=== PATIENT | female | born 1960 | race African-American/Black ===

== ENCOUNTER 2017-05-12 17:29 | Emergency (ER) | payer OTHER ==
[~2017-05-12] VITALS: Ht 167.6 cm; Wt 108.9 kg
[~2017-05-12 17:29] MED LIST: BENTYL 20 MG TA20 M1 PO; BENTYL10 MG PO; BENTYL20 MG PO; CIPRO PO; CITRATE OF MAG296 ML PO; COLACE 100 MG100 MG PO; COMPAZINE10 M2 PO; COMPAZINE25 M1 RC; CYCLOBENZAPRINE10 MG PO; CYMBALTA PO; CYMBALTA60 MG PO; FLEXERIL; HYDROCHLOROTHIA25 M2 PO; HYDROCODON-ACE1 EACH PO; HYDROCODONE-AP1 EAC6 PO; HYDROXYCHLOROQ200 M1 PO; IMURAN 50MG TAB50 M1 PO; LAMISIL250 MG; LISINOPRIL20 MG PO; LOPRESSOR25 PO; LYRICA300 MG PO; METHOTREXATE; MIRALAX17 GM PO; MOBIC15 MG PO; MOTION RELIEF25 MG PO; NEXIUM40 MG PO; NORCO 5-325 TA1 EACH PO; ONDANSETRON HCL4 M2 PO; ONDANSETRON ODT4 MG PO; PERCOCET 5-3251 EACH PO; PHENERGAN 25 MG25 M1 PO; POTASSIUM20 OR; PREDNISONE 5 MG5 M1 PO; PREDNISONE 5 MG5 MG PO; PRILOSEC40 MG PO; PROTONIX40 MG PO; VITAMIN D 5050000 I1; VITAMIN D 5050000 I1 PO; VITAMIN D1000 UNI1 PO; ZANAFLEX2 MG PO; ZOFRAN ODT4 MG PO; ZOFRAN4 MG PO
[2017-05-12] MEDS ORDERED: BENLYSTA120 MG IV (17:38)
[2017-05-12] MEDS ORDERED: MOBIC15 MG PO (17:38)
[2017-05-12] MEDS ORDERED: HYDROCODONE-AP1 EAC6 PO (20:24)
[2017-05-12 20:51] VITALS: BP 144/93
== END 2017-05-12 20:51 | disposition home or self-care (01) ==
LOC: M.ERS 17:29
DX: R51 Headache (principal); M54.2 Cervicalgia; R10.2 Pelvic and perineal pain; M54.5 Low back pain; M32.9 Systemic lupus erythematosus, unspecified; M79.7 Fibromyalgia; M19.90 Unspecified osteoarthritis, unspecified site; I10 Essential (primary) hypertension; K21.9 Gastro-esophageal reflux disease without esophagitis; Z90.49 Acquired absence of other specified parts of digestive tract; Z90.710 Acquired absence of both cervix and uterus

== ENCOUNTER 2017-12-24 07:02 | Emergency (ER) | payer OTHER ==
[~2017-12-24] VITALS: Ht 162.6 cm; Wt 109.3 kg
[~2017-12-24 07:02] MED LIST changes: +BENLYSTA120 MG IV
[2017-12-24] MEDS ORDERED: XYZAL5 MG PO (07:18)
[2017-12-24] MEDS ORDERED: NORCO 5-325 TA1 EACH PO (07:52)
[2017-12-24] MEDS ORDERED: FLEXERIL PO (07:52)
[2017-12-24 08:30] VITALS: BP 138/99
== END 2017-12-24 08:31 | disposition home or self-care (01) ==
LOC: M.ERS 07:02
DX: S39.012A Strain of muscle, fascia and tendon of lower back, initial encounter (principal); I10 Essential (primary) hypertension; M32.9 Systemic lupus erythematosus, unspecified; M79.7 Fibromyalgia; M17.0 Bilateral primary osteoarthritis of knee; K21.9 Gastro-esophageal reflux disease without esophagitis; Z90.49 Acquired absence of other specified parts of digestive tract; Z90.710 Acquired absence of both cervix and uterus; X58.XXXA Exposure to other specified factors, initial encounter; Y93.89 Activity, other specified; Y92.89 Other specified places as the place of occurrence of the external cause; Y99.8 Other external cause status

== ENCOUNTER 2018-02-04 18:44 | Emergency (ER) | payer OTHER ==
[~2018-02-04] VITALS: Ht 167.6 cm; Wt 102.1 kg
[~2018-02-04 18:44] MED LIST changes: +FLEXERIL PO; +XYZAL5 MG PO
[2018-02-04] MEDS ORDERED: BENLYSTA200 MG/1 M SUBQ (18:55)
[2018-02-04] MEDS ORDERED: NORCO 5-325 TA1 EACH PO (19:36)
[2018-02-04] MEDS ORDERED: IBUPROFEN 800800 M1 PO (19:36)
[2018-02-04 20:19] VITALS: BP 147/85
== END 2018-02-04 20:20 | disposition home or self-care (01) ==
LOC: M.ERS 18:44
DX: S52.592A Other fractures of lower end of left radius, initial encounter for closed fracture (principal); S52.612A Displaced fracture of left ulna styloid process, initial encounter for closed fracture; M25.561 Pain in right knee; M79.7 Fibromyalgia; M32.9 Systemic lupus erythematosus, unspecified; I10 Essential (primary) hypertension; K21.9 Gastro-esophageal reflux disease without esophagitis; M13.862 Other specified arthritis, left knee; M13.861 Other specified arthritis, right knee; Z90.710 Acquired absence of both cervix and uterus; Z90.49 Acquired absence of other specified parts of digestive tract; W01.0XXA Fall on same level from slipping, tripping and stumbling without subsequent striking against object, initial encounter; Y93.89 Activity, other specified; Y92.89 Other specified places as the place of occurrence of the external cause; Y99.8 Other external cause status

== ENCOUNTER 2018-02-06 17:50 | Emergency (ER) | payer OTHER ==
[~2018-02-06] VITALS: Ht 167.6 cm; Wt 104.3 kg
[~2018-02-06 17:50] MED LIST changes: +BENLYSTA200 MG/1 M SUBQ; +IBUPROFEN 800800 M1 PO
[2018-02-06 18:15] LABS: URINE BILIRUBIN NEGATIVE (Negative); URINE BLOOD TRACE (Negative); URINE CLARITY CLEAR; URINE COLOR YELLOW; URINE GLUCOSE-RANDOM NEGATIVE (Negative); URINE KETONES NEGATIVE (Negative); URINE LEUKOCYTES-REFLEX NEGATIVE (Negative); URINE NITRITE-REFLEX NEGATIVE (Negative); URINE PROTEIN NEGATIVE (Negative); URINE SPECIFIC GRAVITY >= 1.030 (1.005-1.030); URINE UROBILINOGEN 0.2 E.U./dl (0.2-1.0)
[2018-02-06 18:19] LABS: ABSOLUTE EOSINOPHILS 0.1 thou/uL (0.0-0.7); ABSOLUTE LYMPHOCYTES 1.3 thou/uL (0.8-5.3); ABSOLUTE MONOCYTES 0.5 thou/uL (0.0-1.2); ABSOLUTE NEUTROPHILS 4.5 thou/uL (1.6-8.1); BASOPHILS 0.6 %; EOSINOPHILS 0.9 %; HEMATOCRIT 40.2 % (37.0-47.0); HEMOGLOBIN 12.6 gm/dL (12.0-15.0); LYMPHOCYTES 20.8 %; MCH 24.9 pg (26.0-34.0); MCHC 31.4 g/dL (28.0-37.0); MCV 79.3 fL (80.0-100.0); MONOCYTES 7.6 %; MPV 9.3 fl. (7.2-11.1); NUCLEATED RBCS 0 /100WBC; PLATELET COUNT* 221 thou/uL (150-400); POLYS 70.1 %; RBC 5.07 mil/uL (4.20-5.00); WBC 6.4 thou/uL (4.0-11.0)
[2018-02-06 18:26] LABS: CREATININE 1.1 mg/dL (0.6-1.3); POTASSIUM 3.3 mmol/L (3.5-5.1)
[2018-02-06 18:30] LABS: ALBUMIN 3.1 g/dL (3.4-5.0); TOTAL BILIRUBIN 0.5 mg/dL (<0.1-1.0); TOTAL PROTEIN 7.2 g/dL (6.4-8.2)
[2018-02-06] MEDS ORDERED: PHENERGAN 25 MG25 MG PO (19:12)
[2018-02-06] MEDS ORDERED: ULTRAM 50MG TAB50 MG PO (19:12)
[2018-02-06 19:40] VITALS: BP 165/99
== END 2018-02-06 19:43 | disposition home or self-care (01) ==
LOC: M.ERS 17:50
PROVIDERS: Nurse Practitioner
DX: R11.2 Nausea with vomiting, unspecified (principal); T39.1X5A Adverse effect of 4-Aminophenol derivatives, initial encounter; M79.7 Fibromyalgia; M17.0 Bilateral primary osteoarthritis of knee; K21.9 Gastro-esophageal reflux disease without esophagitis; M32.9 Systemic lupus erythematosus, unspecified; Z90.721 Acquired absence of ovaries, unilateral; Z90.710 Acquired absence of both cervix and uterus; Z90.49 Acquired absence of other specified parts of digestive tract; Y92.89 Other specified places as the place of occurrence of the external cause

== ENCOUNTER 2018-10-21 20:44 | Emergency (ER) | payer OTHER ==
[~2018-10-21] VITALS: Ht 167.6 cm; Wt 103.0 kg
[~2018-10-21 20:44] MED LIST changes: +PHENERGAN 25 MG25 MG PO; +ULTRAM 50MG TAB50 MG PO
[2018-10-21 21:30] LABS: URINE BILIRUBIN NEGATIVE (Negative); URINE BLOOD TRACE (Negative); URINE CLARITY CLEAR; URINE COLOR YELLOW; URINE GLUCOSE-RANDOM NEGATIVE (Negative); URINE KETONES NEGATIVE (Negative); URINE LEUKOCYTES-REFLEX NEGATIVE (Negative); URINE NITRITE-REFLEX NEGATIVE (Negative); URINE PROTEIN NEGATIVE (Negative); URINE SPECIFIC GRAVITY >= 1.030 (1.005-1.030); URINE UROBILINOGEN 0.2 E.U./dl (0.2-1.0)
[2018-10-21 21:45] LABS: ABSOLUTE BASOPHILS 0.1 thou/uL (0.0-0.2); ABSOLUTE EOSINOPHILS 0.1 thou/uL (0.0-0.7); ABSOLUTE LYMPHOCYTES 1.3 thou/uL (0.8-5.3); ABSOLUTE MONOCYTES 0.4 thou/uL (0.0-1.2); ABSOLUTE NEUTROPHILS 6.9 thou/uL (1.6-8.1); BASOPHILS 0.8 %; EOSINOPHILS 0.9 %; HEMATOCRIT 41.3 % (37.0-47.0); HEMOGLOBIN 13.2 gm/dL (12.0-15.0); LYMPHOCYTES 14.4 %; MCH 25.1 pg (26.0-34.0); MCV 78.5 fL (80.0-100.0); MONOCYTES 5.1 %; MPV 9.9 fl. (7.2-11.1); NUCLEATED RBCS 0 /100WBC; PLATELET COUNT* 212 thou/uL (150-400); POLYS 78.8 %; RBC 5.26 mil/uL (4.20-5.00); RDW-CV 14.7 % (10.5-14.5); WBC 8.7 thou/uL (4.0-11.0)
[2018-10-21 21:56] LABS: CALCIUM 9.4 mg/dL (8.5-10.1)
[2018-10-21 22:03] LABS: CREATININE 1.2 mg/dL (0.6-1.3)
[2018-10-21 22:08] LABS: ALBUMIN 3.3 g/dL (3.4-5.0); TOTAL BILIRUBIN 0.4 mg/dL (<0.1-1.0); TOTAL PROTEIN 7.6 g/dL (6.4-8.2)
[2018-10-21] MEDS ORDERED: BENTYL 20 MG TA20 M1 PO (22:23)
[2018-10-21] MEDS ORDERED: ZOFRAN4 MG PO (22:23)
[2018-10-21 22:59] VITALS: BP 146/82
== END 2018-10-21 23:00 | disposition home or self-care (01) ==
LOC: M.ERS 20:44
PROVIDERS: Nurse Practitioner Family
DX: R10.9 Unspecified abdominal pain (principal); R11.2 Nausea with vomiting, unspecified; M79.7 Fibromyalgia; I10 Essential (primary) hypertension; M17.0 Bilateral primary osteoarthritis of knee; K21.9 Gastro-esophageal reflux disease without esophagitis; Z90.49 Acquired absence of other specified parts of digestive tract; Z90.710 Acquired absence of both cervix and uterus

== ENCOUNTER 2019-02-08 12:25 | Emergency (ER) | payer OTHER ==
[~2019-02-08] VITALS: Ht 170.2 cm; Wt 104.3 kg
[2019-02-08] MEDS ORDERED: NORCO 5-325 TA1 EAC1 PO (13:56)
[2019-02-08 14:20] VITALS: BP 183/106
== END 2019-02-08 14:21 | disposition home or self-care (01) ==
LOC: M.ERS 12:25
DX: S82.091A Other fracture of right patella, initial encounter for closed fracture (principal); I10 Essential (primary) hypertension; K21.9 Gastro-esophageal reflux disease without esophagitis; M79.7 Fibromyalgia; Z90.49 Acquired absence of other specified parts of digestive tract; Z90.710 Acquired absence of both cervix and uterus; W01.0XXA Fall on same level from slipping, tripping and stumbling without subsequent striking against object, initial encounter; Y92.89 Other specified places as the place of occurrence of the external cause; Y93.89 Activity, other specified; Y99.8 Other external cause status

== ENCOUNTER 2019-04-20 14:41 | Emergency (ER) | payer MEDICARE ==
[~2019-04-20] VITALS: Ht 167.6 cm; Wt 101.2 kg
[~2019-04-20 14:41] MED LIST changes: +NORCO 5-325 TA1 EAC1 PO
[2019-04-20] MEDS ORDERED: MEDROLDOSEPACK PO (15:36)
[2019-04-20 16:01] VITALS: BP 174/102
== END 2019-04-20 16:02 | disposition home or self-care (01) ==
LOC: M.ERS 14:41
DX: S80.01XA Contusion of right knee, initial encounter (principal); M25.461 Effusion, right knee; M32.9 Systemic lupus erythematosus, unspecified; M79.7 Fibromyalgia; M13.862 Other specified arthritis, left knee; M13.861 Other specified arthritis, right knee; K21.9 Gastro-esophageal reflux disease without esophagitis; I10 Essential (primary) hypertension; Z90.49 Acquired absence of other specified parts of digestive tract; Z90.710 Acquired absence of both cervix and uterus; W01.0XXA Fall on same level from slipping, tripping and stumbling without subsequent striking against object, initial encounter; Y93.89 Activity, other specified; Y92.89 Other specified places as the place of occurrence of the external cause; Y99.8 Other external cause status

== ENCOUNTER 2019-09-11 08:48 | Emergency (ER) | payer MEDICARE ==
[~2019-09-11] VITALS: Ht 167.6 cm; Wt 99.8 kg
[~2019-09-11 08:48] MED LIST changes: +MEDROLDOSEPACK PO
[2019-09-11] MEDS ORDERED: TRAMADOL 50 MG50 MG PO (08:54)
[2019-09-11] MEDS ORDERED: ELIQUIS2.5 MG PO (08:54)
[2019-09-11 09:38] VITALS: BP 137/96
== END 2019-09-11 09:39 | disposition home or self-care (01) ==
LOC: M.ERS 08:48
DX: K13.29 Other disturbances of oral epithelium, including tongue (principal); M79.7 Fibromyalgia; I10 Essential (primary) hypertension; K21.9 Gastro-esophageal reflux disease without esophagitis; Z90.710 Acquired absence of both cervix and uterus

== ENCOUNTER 2019-09-20 10:30 | Emergency (ER) | payer MEDICARE ==
[~2019-09-20] VITALS: Ht 167.6 cm; Wt 101.2 kg
[~2019-09-20 10:30] MED LIST changes: +ELIQUIS2.5 MG PO; +TRAMADOL 50 MG50 MG PO
[2019-09-20 11:08] LABS: ABSOLUTE EOSINOPHILS 0.5 thou/uL (0.0-0.7); ABSOLUTE LYMPHOCYTES 1.3 thou/uL (0.8-5.3); ABSOLUTE MONOCYTES 0.4 thou/uL (0.0-1.2); ABSOLUTE NEUTROPHILS 3.1 thou/uL (1.6-8.1); BASOPHILS 0.7 %; EOSINOPHILS 8.8 %; HEMATOCRIT 36.3 % (37.0-47.0); HEMOGLOBIN 11.9 gm/dL (12.0-15.0); LYMPHOCYTES 24.8 %; MCH 26.2 pg (26.0-34.0); MCHC 32.8 g/dL (28.0-37.0); MCV 79.8 fL (80.0-100.0); MONOCYTES 8.2 %; NUCLEATED RBCS 0 /100WBC; PLATELET COUNT* 245 thou/uL (150-400); POLYS 57.5 %; RBC 4.55 mil/uL (4.20-5.00); RDW-CV 14.5 % (10.5-14.5); WBC 5.4 thou/uL (4.0-11.0)
[2019-09-20 11:19] LABS: CALCIUM 8.1 mg/dL (8.5-10.1); CREATININE 1.1 mg/dL (0.6-1.3); POTASSIUM 3.3 mmol/L (3.5-5.1)
[2019-09-20 11:24] LABS: TOTAL BILIRUBIN 0.5 mg/dL (<0.1-1.0); TOTAL PROTEIN 6.6 g/dL (6.4-8.2)
[2019-09-20 12:40] LABS: URINE BILIRUBIN NEGATIVE (Negative); URINE BLOOD NEGATIVE (Negative); URINE CLARITY CLEAR; URINE COLOR YELLOW; URINE GLUCOSE-RANDOM NEGATIVE (Negative); URINE KETONES NEGATIVE (Negative); URINE LEUKOCYTES-REFLEX NEGATIVE (Negative); URINE NITRITE-REFLEX NEGATIVE (Negative); URINE PROTEIN NEGATIVE (Negative); URINE SPECIFIC GRAVITY <= 1.005 (1.005-1.030); URINE UROBILINOGEN 0.2 E.U./dl (0.2-1.0)
[2019-09-20 13:25] VITALS: BP 152/95
--- NOTE | 2019-09-20 15:27 | EKG ---
[place] [address] ELECTROCARDIOGRAM REPORT Name: TALIB ORANTES Room: [facility]#: [id number] Admission: 09/20/19 Attend Phys: Discharge: 09/20/19 Date of : 64 Date of Service: 09/20/19 1122 Report #: [id number] THIS REPORT FOR: //name// [facility] ED Test Date: 2019-09-20 Test Time: 11:22:54 Pat Name: TALIB ORANTES Department: Room: Gender: F Access Director: PAUL : 1960 Requested By: Jayden Gonzalez Order Number: [id number] MD: Bennie Salinas Measurements Intervals [place] Rate: 89 P: 43 [place]: 138 QRS: 8 QRSD: 81 T: 6 QT: 380 QTc: 463 Interpretive Statements Sinus rhythm Left ventricular hypertrophy Compared to ECG 07/23/2013 18:37:01 Left ventricular hypertrophy now present Electronically Signed On 09-20-2019 15:26:15 CDT by Bennie Salinas [email or web address] <ELECTRONICALLY SIGNED> By: Bennie Salinas MD, FAC 09/20/19 1526 1122 1122 Bennie Salinas MD, [facility] /EPI
== END 2019-09-20 13:25 | disposition home or self-care (01) ==
LOC: M.ERS 10:30
PROVIDERS: Family Medicine
DX: K59.00 Constipation, unspecified (principal); R10.31 Right lower quadrant pain; R60.0 Localized edema; I10 Essential (primary) hypertension; M79.7 Fibromyalgia; K21.9 Gastro-esophageal reflux disease without esophagitis; Z90.710 Acquired absence of both cervix and uterus; Z90.49 Acquired absence of other specified parts of digestive tract; Z79.899 Other long term (current) drug therapy

== ENCOUNTER 2019-11-15 10:14 | Emergency (ER) | payer MEDICARE ==
[~2019-11-15] VITALS: Ht 167.6 cm; Wt 104.3 kg
[2019-11-15] MEDS ORDERED: PLAQUENIL200 MG PO (10:27)
[2019-11-15] MEDS ORDERED: PREDNISONE 5 MG5 M1 PO (10:28)
[2019-11-15] MEDS ORDERED: BENADRYL25 MG PO (10:28)
[2019-11-15] MEDS ORDERED: NABUMETONE 750750 M1 PO (11:04)
[2019-11-15] MEDS ORDERED: TRAMADOL 50 MG50 MG PO (11:04)
[2019-11-15 11:19] VITALS: BP 155/98
== END 2019-11-15 11:20 | disposition home or self-care (01) ==
LOC: M.ERS 10:14
DX: M25.461 Effusion, right knee (principal); M79.7 Fibromyalgia; I10 Essential (primary) hypertension; K21.9 Gastro-esophageal reflux disease without esophagitis; M17.0 Bilateral primary osteoarthritis of knee; M32.9 Systemic lupus erythematosus, unspecified; Z90.49 Acquired absence of other specified parts of digestive tract; Z90.710 Acquired absence of both cervix and uterus

== ENCOUNTER 2020-02-29 02:30 | Emergency (ER) | payer MEDICARE ==
[~2020-02-29] VITALS: Ht 167.6 cm; Wt 104.3 kg
[~2020-02-29 02:30] MED LIST changes: +BENADRYL25 MG PO; +NABUMETONE 750750 M1 PO; +PLAQUENIL200 MG PO
[2020-02-29 03:09] LABS: ABSOLUTE EOSINOPHILS 0.2 thou/uL (0.0-0.7); ABSOLUTE LYMPHOCYTES 1.7 thou/uL (0.8-5.3); ABSOLUTE MONOCYTES 0.5 thou/uL (0.0-1.2); ABSOLUTE NEUTROPHILS 2.6 thou/uL (1.6-8.1); BASOPHILS 0.7 %; EOSINOPHILS 3.8 %; HEMATOCRIT 38.5 % (37.0-47.0); HEMOGLOBIN 12.3 gm/dL (12.0-15.0); LYMPHOCYTES 33.8 %; MCH 24.9 pg (26.0-34.0); MCHC 31.9 g/dL (28.0-37.0); MCV 78.1 fL (80.0-100.0); MONOCYTES 10.2 %; NUCLEATED RBCS 0 /100WBC; PLATELET COUNT* 223 thou/uL (150-400); POLYS 51.5 %; RBC 4.93 mil/uL (4.20-5.00); RDW-CV 14.7 % (10.5-14.5); WBC 5.1 thou/uL (4.0-11.0)
[2020-02-29 03:27] LABS: CALCIUM 9.1 mg/dL (8.5-10.1); POTASSIUM 3.4 mmol/L (3.5-5.1)
[2020-02-29 03:32] LABS: ALBUMIN 3.4 g/dL (3.4-5.0); TOTAL BILIRUBIN 0.6 mg/dL (<0.1-1.0); TOTAL PROTEIN 7.1 g/dL (6.4-8.2)
[2020-02-29] MEDS ORDERED: PREDNISONE50 MG PO (05:47)
[2020-02-29 06:03] VITALS: BP 170/80
== END 2020-02-29 06:04 | disposition home or self-care (01) ==
LOC: M.ERS 02:30
PROVIDERS: Emergency Medicine
DX: T78.3XXA Angioneurotic edema, initial encounter (principal); M79.7 Fibromyalgia; I10 Essential (primary) hypertension; K21.9 Gastro-esophageal reflux disease without esophagitis; M17.0 Bilateral primary osteoarthritis of knee; Z90.711 Acquired absence of uterus with remaining cervical stump; Z90.49 Acquired absence of other specified parts of digestive tract; Z96.612 Presence of left artificial shoulder joint; Z79.899 Other long term (current) drug therapy

== ENCOUNTER 2020-03-14 22:16 | Emergency (ER) | payer MEDICARE ==
[~2020-03-14] VITALS: Ht 167.6 cm; Wt 58.1 kg
[~2020-03-14 22:16] MED LIST changes: +PREDNISONE50 MG PO
[2020-03-14 23:21] LABS: ABSOLUTE BASOPHILS 0.1 thou/uL (0.0-0.2); ABSOLUTE LYMPHOCYTES 1.5 thou/uL (0.8-5.3); ABSOLUTE MONOCYTES 0.6 thou/uL (0.0-1.2); ABSOLUTE NEUTROPHILS 7.4 thou/uL (1.6-8.1); BASOPHILS 0.8 %; EOSINOPHILS 0.2 %; LYMPHOCYTES 15.8 %; MCH 24.7 pg (26.0-34.0); MCHC 31.6 g/dL (28.0-37.0); MONOCYTES 6.1 %; MPV 9.4 fl. (7.2-11.1); NUCLEATED RBCS 0 /100WBC; PLATELET COUNT* 233 thou/uL (150-400); POLYS 77.1 %; RBC 5.26 mil/uL (4.20-5.00); RDW-CV 14.5 % (10.5-14.5); WBC 9.6 thou/uL (4.0-11.0)
[2020-03-14 23:38] LABS: URINE BILIRUBIN NEGATIVE (Negative); URINE BLOOD NEGATIVE (Negative); URINE CLARITY CLEAR; URINE COLOR YELLOW; URINE GLUCOSE-RANDOM NEGATIVE (Negative); URINE KETONES NEGATIVE (Negative); URINE LEUKOCYTES-REFLEX NEGATIVE (Negative); URINE NITRITE-REFLEX NEGATIVE (Negative); URINE PROTEIN TRACE (Negative); URINE SPECIFIC GRAVITY >= 1.030 (1.005-1.030); URINE UROBILINOGEN 0.2 E.U./dl (0.2-1.0)
[2020-03-14 23:39] LABS: CALCIUM 8.8 mg/dL (8.5-10.1); CREATININE 1.1 mg/dL (0.6-1.3); POTASSIUM 4.1 mmol/L (3.5-5.1)
[2020-03-14 23:43] LABS: ALBUMIN 3.5 g/dL (3.4-5.0); TOTAL BILIRUBIN 0.8 mg/dL (<0.1-1.0); TOTAL PROTEIN 7.7 g/dL (6.4-8.2)
[2020-03-15] MEDS ORDERED: ZOFRAN ODT4 MG PO (00:17)
[2020-03-15 00:33] VITALS: BP 156/91
--- NOTE | 2020-03-15 10:16 | EKG ---
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[place] : 1960 Requested By: Irene Prince Order Number: [id number] MD: Bennie Salinas Measurements Intervals [place] Rate: 80 P: 52 [place]: 145 QRS: 10 QRSD: 77 T: 32 QT: 366 QTc: 423 Interpretive Statements Sinus rhythm Left ventricular hypertrophy Compared to ECG 09/20/2019 11:22:54 No significant changes Electronically Signed On 03-15-2020 10:16:09 LUMBER SALES SUPERVISOR by Bennie Salinas [email or web address] <ELECTRONICALLY SIGNED> By: Bennie Salinas MD, FACC 03/15/20 1016 2315 2315 Bennie Salinas MD, [facility] /EPI
== END 2020-03-15 00:33 | disposition home or self-care (01) ==
LOC: M.ERS 22:16
PROVIDERS: Personal Emergency Response Attendant
DX: R11.2 Nausea with vomiting, unspecified (principal); Z20.828 Contact with and (suspected) exposure to other viral communicable diseases; M32.9 Systemic lupus erythematosus, unspecified; M79.7 Fibromyalgia; I10 Essential (primary) hypertension; K21.9 Gastro-esophageal reflux disease without esophagitis; Z90.49 Acquired absence of other specified parts of digestive tract; Z90.710 Acquired absence of both cervix and uterus; Z79.899 Other long term (current) drug therapy

== ENCOUNTER 2020-04-23 14:50 | Emergency (ER) | payer OTHER ==
[~2020-04-23] VITALS: Ht 167.6 cm; Wt 100.7 kg
[2020-04-23 15:39] VITALS: BP 157/98
== END 2020-04-23 15:39 | disposition home or self-care (01) ==
LOC: M.ERS 14:50
DX: U07.1 COVID-19 (principal); M79.10 Myalgia, unspecified site; I10 Essential (primary) hypertension; K21.9 Gastro-esophageal reflux disease without esophagitis; Z90.49 Acquired absence of other specified parts of digestive tract; Z90.710 Acquired absence of both cervix and uterus; Z79.899 Other long term (current) drug therapy

== ENCOUNTER 2020-05-14 20:22 | Emergency (ER) | payer OTHER ==
[~2020-05-14] VITALS: Ht 167.6 cm; Wt 99.8 kg
[2020-05-14 21:10] LABS: ABSOLUTE BASOPHILS 0.1 thou/uL (0.0-0.2); ABSOLUTE EOSINOPHILS 0.1 thou/uL (0.0-0.7); ABSOLUTE LYMPHOCYTES 1.3 thou/uL (0.8-5.3); ABSOLUTE MONOCYTES 0.5 thou/uL (0.0-1.2); ABSOLUTE NEUTROPHILS 4.1 thou/uL (1.6-8.1); EOSINOPHILS 1.1 %; HEMATOCRIT 37.3 % (37.0-47.0); HEMOGLOBIN 11.8 gm/dL (12.0-15.0); LYMPHOCYTES 22.4 %; MCH 24.9 pg (26.0-34.0); MCHC 31.7 g/dL (28.0-37.0); MCV 78.4 fL (80.0-100.0); MONOCYTES 7.9 %; MPV 9.6 fl. (7.2-11.1); NUCLEATED RBCS 0 /100WBC; PLATELET COUNT* 208 thou/uL (150-400); POLYS 67.6 %; RBC 4.76 mil/uL (4.20-5.00)
[2020-05-14 21:15] LABS: CALCIUM 8.9 mg/dL (8.5-10.1); CREATININE 0.9 mg/dL (0.6-1.3); POTASSIUM 3.6 mmol/L (3.5-5.1)
[2020-05-14 21:20] LABS: ALBUMIN 3.3 g/dL (3.4-5.0); TOTAL BILIRUBIN 0.5 mg/dL (<0.1-1.0); TOTAL PROTEIN 7.3 g/dL (6.4-8.2)
[2020-05-14 22:29] LABS: URINE BILIRUBIN NEGATIVE (Negative); URINE BLOOD NEGATIVE (Negative); URINE CLARITY CLEAR; URINE COLOR YELLOW; URINE GLUCOSE-RANDOM NEGATIVE (Negative); URINE KETONES NEGATIVE (Negative); URINE LEUKOCYTES-REFLEX NEGATIVE (Negative); URINE NITRITE-REFLEX NEGATIVE (Negative); URINE PROTEIN NEGATIVE (Negative); URINE SPECIFIC GRAVITY 1.025 (1.005-1.030); URINE UROBILINOGEN 0.2 E.U./dl (0.2-1.0)
[2020-05-14] MEDS ORDERED: ZOFRAN ODT4 MG PO (22:53)
[2020-05-14] MEDS ORDERED: PREDNISONE 10 M10 MG PO (22:54)
[2020-05-14 23:05] VITALS: BP 186/104
[2020-05-15] MEDS ORDERED: PHENERGAN 25 MG25 M1 PO (20:27)
== END 2020-05-14 23:05 | disposition home or self-care (01) ==
LOC: M.ERS 20:22
PROVIDERS: Personal Emergency Response Attendant
DX: R11.0 Nausea (principal); R10.84 Generalized abdominal pain; Z20.822 Contact with and (suspected) exposure to COVID-19; I10 Essential (primary) hypertension; K21.9 Gastro-esophageal reflux disease without esophagitis; M79.7 Fibromyalgia; M32.9 Systemic lupus erythematosus, unspecified; M17.4 Other bilateral secondary osteoarthritis of knee; Z96.612 Presence of left artificial shoulder joint; Z90.710 Acquired absence of both cervix and uterus; Z90.49 Acquired absence of other specified parts of digestive tract

== ENCOUNTER 2020-05-15 19:27 | Emergency (ER) | payer OTHER ==
[~2020-05-15] VITALS: Ht 167.6 cm; Wt 99.8 kg
[~2020-05-15 19:27] MED LIST changes: +PREDNISONE 10 M10 MG PO
[2020-05-15] MEDS ORDERED: PHENERGAN 25 MG25 M1 PO (20:27)
[2020-05-15 20:34] VITALS: BP 197/108
== END 2020-05-15 20:35 | disposition home or self-care (01) ==
LOC: M.ERS 19:27
DX: R11.2 Nausea with vomiting, unspecified (principal); Z90.710 Acquired absence of both cervix and uterus; M32.9 Systemic lupus erythematosus, unspecified; M79.7 Fibromyalgia; M17.4 Other bilateral secondary osteoarthritis of knee; K21.9 Gastro-esophageal reflux disease without esophagitis; Z90.49 Acquired absence of other specified parts of digestive tract; Z96.612 Presence of left artificial shoulder joint

== ENCOUNTER 2020-05-24 10:43 | Emergency (ER) | payer OTHER ==
[~2020-05-24] VITALS: Ht 167.6 cm; Wt 102.1 kg
[2020-05-24] MEDS ORDERED: HYDROCODON-ACE1 EAC7 PO (10:56)
[2020-05-24 12:14] VITALS: BP 153/94
== END 2020-05-24 12:15 | disposition home or self-care (01) ==
LOC: M.ERS 10:43
DX: S80.02XA Contusion of left knee, initial encounter (principal); M79.7 Fibromyalgia; I10 Essential (primary) hypertension; M17.0 Bilateral primary osteoarthritis of knee; M32.9 Systemic lupus erythematosus, unspecified; K21.9 Gastro-esophageal reflux disease without esophagitis; Z90.49 Acquired absence of other specified parts of digestive tract; Z90.710 Acquired absence of both cervix and uterus; Z96.612 Presence of left artificial shoulder joint; W01.0XXA Fall on same level from slipping, tripping and stumbling without subsequent striking against object, initial encounter; Y93.89 Activity, other specified; Y92.89 Other specified places as the place of occurrence of the external cause; Y99.8 Other external cause status

== ENCOUNTER 2020-07-20 12:16 | Emergency (ER) | payer OTHER ==
[~2020-07-20] VITALS: Ht 170.2 cm; Wt 104.3 kg
[~2020-07-20 12:16] MED LIST changes: +HYDROCODON-ACE1 EAC7 PO
[2020-07-20] MEDS ORDERED: COZAAR 25 MG TA25 M1 PO (12:29)
[2020-07-20] MEDS ORDERED: AMITRIPTYLINE H10 M1 PO (12:29)
[2020-07-20 13:09] LABS: ABSOLUTE EOSINOPHILS 0.3 thou/uL (0.0-0.7); ABSOLUTE LYMPHOCYTES 1.7 thou/uL (0.8-5.3); ABSOLUTE MONOCYTES 0.5 thou/uL (0.0-1.2); ABSOLUTE NEUTROPHILS 2.9 thou/uL (1.6-8.1); BASOPHILS 0.9 %; EOSINOPHILS 5.7 %; HEMATOCRIT 37.3 % (37.0-47.0); HEMOGLOBIN 11.8 gm/dL (12.0-15.0); LYMPHOCYTES 31.4 %; MCH 25.2 pg (26.0-34.0); MCHC 31.6 g/dL (28.0-37.0); MCV 79.9 fL (80.0-100.0); MONOCYTES 8.7 %; MPV 8.8 fl. (7.2-11.1); NUCLEATED RBCS 0 /100WBC; PLATELET COUNT* 233 thou/uL (150-400); POLYS 53.3 %; RBC 4.67 mil/uL (4.20-5.00); RDW-CV 14.6 % (10.5-14.5); WBC 5.4 thou/uL (4.0-11.0)
[2020-07-20 13:18] LABS: POTASSIUM 3.9 mmol/L (3.5-5.1)
[2020-07-20 13:27] LABS: ALBUMIN 3.3 g/dL (3.4-5.0); TOTAL BILIRUBIN 0.4 mg/dL (<0.1-1.0); TOTAL PROTEIN 7.8 g/dL (6.4-8.2)
[2020-07-20] MEDS ORDERED: NORCO5 PO ×2 (13:54→14:00)
[2020-07-20 14:03] VITALS: BP 133/68
--- NOTE | 2020-07-20 15:54 | EKG ---
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 /EPI
== END 2020-07-20 14:04 | disposition home or self-care (01) ==
LOC: M.ERS 12:16
PROVIDERS: Physician Assistant
DX: M54.12 Radiculopathy, cervical region (principal); M79.7 Fibromyalgia; I10 Essential (primary) hypertension; M17.0 Bilateral primary osteoarthritis of knee; K21.9 Gastro-esophageal reflux disease without esophagitis; Z90.710 Acquired absence of both cervix and uterus; Z87.42 Personal history of other diseases of the female genital tract; Z90.49 Acquired absence of other specified parts of digestive tract; Z96.612 Presence of left artificial shoulder joint; Z79.899 Other long term (current) drug therapy

== ENCOUNTER 2021-01-15 09:07 | Emergency (ER) | payer OTHER ==
[~2021-01-15] VITALS: Ht 170.2 cm; Wt 105.2 kg
[~2021-01-15 09:07] MED LIST changes: +AMITRIPTYLINE H10 M1 PO; +COZAAR 25 MG TA25 M1 PO; +NORCO5 PO
[2021-01-15] MEDS ORDERED: PREDNISONE 20 M20 M1 PO (10:17)
[2021-01-15 10:37] VITALS: BP 134/72
== END 2021-01-15 10:38 | disposition home or self-care (01) ==
LOC: M.ERS 09:07
DX: T78.40XA Allergy, unspecified, initial encounter (principal); M19.90 Unspecified osteoarthritis, unspecified site; I10 Essential (primary) hypertension; K21.9 Gastro-esophageal reflux disease without esophagitis; Z90.710 Acquired absence of both cervix and uterus; Z90.49 Acquired absence of other specified parts of digestive tract; Z79.899 Other long term (current) drug therapy; X58.XXXA Exposure to other specified factors, initial encounter

== ENCOUNTER 2021-02-07 15:20 | Emergency (ER) | payer OTHER ==
[~2021-02-07] VITALS: Ht 170.2 cm; Wt 105.2 kg
[~2021-02-07 15:20] MED LIST changes: +PREDNISONE 20 M20 M1 PO
[2021-02-07] MEDS ORDERED: ZYRTEC10 M5 PO (15:30)
[2021-02-07 16:06] LABS: ABSOLUTE LYMPHOCYTES 0.9 thou/uL (0.8-5.3); ABSOLUTE MONOCYTES 0.4 thou/uL (0.0-1.2); ABSOLUTE NEUTROPHILS 4.7 thou/uL (1.6-8.1); BASOPHILS 0.6 %; EOSINOPHILS 0.2 %; HEMATOCRIT 38.1 % (37.0-47.0); HEMOGLOBIN 12.2 gm/dL (12.0-15.0); LYMPHOCYTES 15.3 %; MCH 24.8 pg (26.0-34.0); MCHC 32.2 g/dL (28.0-37.0); MCV 77.2 fL (80.0-100.0); MONOCYTES 5.8 %; MPV 8.9 fl. (7.2-11.1); NUCLEATED RBCS 0 /100WBC; PLATELET COUNT* 225 thou/uL (150-400); POLYS 78.1 %; RBC 4.93 mil/uL (4.20-5.00); RDW-CV 14.3 % (10.5-14.5); WBC 6.1 thou/uL (4.0-11.0)
[2021-02-07 16:14] LABS: POTASSIUM 3.6 mmol/L (3.5-5.1)
[2021-02-07 16:19] LABS: ALBUMIN 3.4 g/dL (3.4-5.0); TOTAL BILIRUBIN 0.3 mg/dL (<0.1-1.0); TOTAL PROTEIN 7.5 g/dL (6.4-8.2)
[2021-02-07 16:25] LABS: URINE BILIRUBIN NEGATIVE (Negative); URINE BLOOD NEGATIVE (Negative); URINE CLARITY CLEAR; URINE COLOR YELLOW; URINE GLUCOSE-RANDOM NEGATIVE (Negative); URINE KETONES NEGATIVE (Negative); URINE LEUKOCYTES-REFLEX NEGATIVE (Negative); URINE NITRITE-REFLEX NEGATIVE (Negative); URINE PROTEIN 1+ (Negative); URINE SPECIFIC GRAVITY >= 1.030 (1.005-1.030); URINE UROBILINOGEN 0.2 E.U./dl (0.2-1.0)
[2021-02-07] MEDS ORDERED: ONDANSETRON ODT4 MG PO (17:14)
[2021-02-07 17:44] VITALS: BP 147/71
--- NOTE | 2021-02-08 08:11 | EKG ---
[place] [address] ELECTROCARDIOGRAM REPORT Name: TALIB ORANTES Room: [facility]#: [id number] Admission: 02/07/21 Attend Phys: Discharge: 02/07/21 Date of : 64 Date of Service: 02/07/21 1605 Report #: [id number] THIS REPORT FOR: //name// [facility] ED Test Date: 2021-02-07 Test Time: 16:05:52 Pat Name: TALIB ORANTES Department: Room: Gender: F Ceramic Worker: ANSON : 1960 Requested By: Lauri Grullon Order Number: [id number] MD: Michael Nicole Measurements Intervals [place] Rate: 70 P: 43 [place]: 147 QRS: 16 QRSD: 87 T: 4 QT: 398 QTc: 430 Interpretive Statements Sinus rhythm Left ventricular hypertrophy, by voltage Compared to ECG 07/20/2020 13:23:40 No significant changes Electronically Signed On 02-08-2021 8:11:18 CDT by Michael Nicole [email or web address] <ELECTRONICALLY SIGNED> By: Michael Nicole MD, FACC 02/08/21 0811 1605 1605 Michael Nicole MD, FAC /EPI
== END 2021-02-07 17:46 | disposition home or self-care (01) ==
LOC: M.ERS 15:20
PROVIDERS: Physician Assistant
DX: R11.2 Nausea with vomiting, unspecified (principal); I10 Essential (primary) hypertension; M19.90 Unspecified osteoarthritis, unspecified site; K21.9 Gastro-esophageal reflux disease without esophagitis; Z90.710 Acquired absence of both cervix and uterus; Z90.49 Acquired absence of other specified parts of digestive tract; Z79.899 Other long term (current) drug therapy

== ENCOUNTER 2021-03-14 20:25 | Emergency (ER) | payer OTHER ==
[~2021-03-14] VITALS: Ht 170.2 cm; Wt 103.4 kg
[~2021-03-14 20:25] MED LIST changes: +ZYRTEC10 M5 PO
[2021-03-14 23:07] LABS: URINE BILIRUBIN NEGATIVE (Negative); URINE BLOOD NEGATIVE (Negative); URINE CLARITY CLEAR; URINE COLOR YELLOW; URINE GLUCOSE-RANDOM NEGATIVE (Negative); URINE KETONES NEGATIVE (Negative); URINE LEUKOCYTES-REFLEX NEGATIVE (Negative); URINE NITRITE-REFLEX NEGATIVE (Negative); URINE PROTEIN 1+ (Negative); URINE SPECIFIC GRAVITY 1.025 (1.005-1.030); URINE UROBILINOGEN 0.2 E.U./dl (0.2-1.0)
[2021-03-14 23:15] LABS: ABSOLUTE EOSINOPHILS 0.1 thou/uL (0.0-0.7); ABSOLUTE LYMPHOCYTES 1.2 thou/uL (0.8-5.3); ABSOLUTE MONOCYTES 0.5 thou/uL (0.0-1.2); ABSOLUTE NEUTROPHILS 3.3 thou/uL (1.6-8.1); BASOPHILS 0.7 %; EOSINOPHILS 1.6 %; HEMATOCRIT 39.2 % (37.0-47.0); HEMOGLOBIN 12.6 gm/dL (12.0-15.0); LYMPHOCYTES 23.1 %; MCH 25.2 pg (26.0-34.0); MCHC 32.1 g/dL (28.0-37.0); MCV 78.5 fL (80.0-100.0); MONOCYTES 9.3 %; NUCLEATED RBCS 0 /100WBC; PLATELET COUNT* 177 thou/uL (150-400); POLYS 65.3 %; RDW-CV 15.2 % (10.5-14.5); WBC 5.1 thou/uL (4.0-11.0)
[2021-03-14 23:25] LABS: CALCIUM 8.9 mg/dL (8.5-10.1); CREATININE 1.1 mg/dL (0.6-1.3); POTASSIUM 3.5 mmol/L (3.5-5.1)
[2021-03-14 23:29] LABS: ALBUMIN 3.1 g/dL (3.4-5.0); TOTAL BILIRUBIN 0.7 mg/dL (<0.1-1.0)
[2021-03-15] MEDS ORDERED: HYDROCODON-ACE1 EAC7 PO (01:00)
[2021-03-15] MEDS ORDERED: ZOFRAN ODT4 MG PO (01:00)
[2021-03-15] MEDS ORDERED: MEDROLDOSEPACK PO (01:00)
[2021-03-15 01:33] VITALS: BP 153/85
--- NOTE | 2021-03-15 11:43 | EKG ---
[place] [address] ELECTROCARDIOGRAM REPORT Name: TALIB ORANTES Room: [facility]#: [id number] Admission: 03/14/21 Attend Phys: Discharge: 03/15/21 Date of : 64 Date of Service: 03/14/212123 Report #: [id number] THIS REPORT FOR: //name// [facility] ED Test Date: 2021-03-14 Test Time: 21:24:22 Pat Name: TALIB ORANTES Department: Room: Gender: F [place]: : 1960 Requested By: Irene Prince Order Number: [id number] MD: Michael Nicole Measurements Intervals [place] Rate: 90 P: 47 [place]: 140 QRS: 22 QRSD: 83 T: 24 QT: 362 QTc: 443 Interpretive Statements Sinus rhythm Compared to ECG 02/07/2021 16:05:52 Left ventricular hypertrophy no longer present Electronically Signed On 03-15-2021 11:43:44 CONCESSION SUPERVISOR by Michael Nicole [email or web address] <ELECTRONICALLY SIGNED> By: Michael Nicole MD, FACC 03/15/21 1143 23 23 Michael Nicole MD, FAC /EPI
== END 2021-03-15 01:34 | disposition home or self-care (01) ==
LOC: M.ERS 20:25
PROVIDERS: Personal Emergency Response Attendant
DX: M32.9 Systemic lupus erythematosus, unspecified (principal); I10 Essential (primary) hypertension; K21.9 Gastro-esophageal reflux disease without esophagitis; Z90.710 Acquired absence of both cervix and uterus; Z90.49 Acquired absence of other specified parts of digestive tract; Z79.899 Other long term (current) drug therapy

== ENCOUNTER 2021-05-31 18:57 | Emergency (ER) | payer OTHER ==
[~2021-05-31] VITALS: Ht 167.6 cm; Wt 103.4 kg
[2021-05-31 19:41] LABS: URINE BILIRUBIN NEGATIVE (Negative); URINE BLOOD TRACE (Negative); URINE COLOR YELLOW; URINE GLUCOSE-RANDOM NEGATIVE (Negative); URINE KETONES NEGATIVE (Negative); URINE NITRITE-REFLEX NEGATIVE (Negative); URINE PROTEIN NEGATIVE (Negative); URINE SPECIFIC GRAVITY >= 1.030 (1.005-1.030)
[2021-05-31 19:42] LABS: HEMATOCRIT 42.2 % (37.0-47.0); HEMOGLOBIN 13.5 gm/dL (12.0-15.0); MCH 25.1 pg (26.0-34.0); MCHC 31.9 g/dL (28.0-37.0); MCV 78.5 fL (80.0-100.0); MPV 9.4 fl. (7.2-11.1); NUCLEATED RBCS 0 /100WBC; PLATELET COUNT* 266 thou/uL (150-400); RBC 5.37 mil/uL (4.20-5.00); RDW-CV 14.4 % (10.5-14.5); WBC 7.9 thou/uL (4.0-11.0)
[2021-05-31 19:50] LABS: SQUAMOUS 4-10 Moderate /LPF (0-3); URINE CLARITY CLOUDY; URINE LEUKOCYTES-REFLEX 2+ (Negative)
[2021-05-31 19:51] LABS: CASTS None Seen /LPF (None Seen); CRYSTALS None Seen /LPF (None Seen); URINE RBC 0-2 Rare /HPF (0-2)
[2021-05-31 20:08] LABS: POTASSIUM 4.2 mmol/L (3.5-5.1)
[2021-05-31 20:12] LABS: ALBUMIN 3.3 g/dL (3.4-5.0); MAGNESIUM 2.6 mg/dL (1.8-2.4); TOTAL BILIRUBIN 0.9 mg/dL (<0.1-1.0); TOTAL PROTEIN 7.8 g/dL (6.4-8.2)
[2021-05-31 20:19] LABS: ABSOLUTE LYMPHOCYTES 0.9 thou/uL (0.8-5.3); ABSOLUTE MONOCYTES 0.2 thou/uL (0.0-1.2); ABSOLUTE NEUTROPHILS 6.7 thou/uL (1.6-8.1); PLATELET ESTIMATE ADEQUATE
[2021-05-31] MEDS ORDERED: MACROBID 100 M100 M1 PO (21:30)
[2021-05-31] MEDS ORDERED: ZOFRAN ODT4 MG PO (21:30)
[2021-05-31 21:46] VITALS: BP 173/95
== END 2021-05-31 21:46 | disposition home or self-care (01) ==
LOC: M.ERS 18:57
PROVIDERS: Emergency Medicine
DX: N39.0 Urinary tract infection, site not specified (principal); R11.2 Nausea with vomiting, unspecified; M79.7 Fibromyalgia; M19.90 Unspecified osteoarthritis, unspecified site; I10 Essential (primary) hypertension; K21.9 Gastro-esophageal reflux disease without esophagitis; Z90.49 Acquired absence of other specified parts of digestive tract; Z90.710 Acquired absence of both cervix and uterus; Z98.890 Other specified postprocedural states; Z79.899 Other long term (current) drug therapy